=== PATIENT | male | born 1960 | race Caucasian/White ===

== ENCOUNTER 2018-05-05 14:35 | Emergency (ER) | payer OTHER ==
[~2018-05-05] VITALS: Ht 180.3 cm; Wt 81.7 kg
[~2018-05-05 14:35] MED LIST: ASPIRIN325 MG PO; CLOZARIL100 MG PO; EFFEXOR XR150 MG PO
[2018-05-05] MEDS ORDERED: NORCO 5/3251 TABLET PO (16:13)
[2018-05-05] MEDS ORDERED: AUGMENTIN875 MG PO (16:13)
[2018-05-05 16:19] VITALS: BP 121/81
== END 2018-05-05 16:20 | disposition home or self-care (01) ==
LOC: EME 14:35
DX: K04.7 Periapical abscess without sinus (principal); F41.9 Anxiety disorder, unspecified; F32.9 Major depressive disorder, single episode, unspecified; F17.200 Nicotine dependence, unspecified, uncomplicated; Z79.82 Long term (current) use of aspirin
CPT/HCPCS: 99281; 99284

== ENCOUNTER 2018-05-23 10:36 | Emergency (ER) | payer OTHER ==
[~2018-05-23] VITALS: Ht 180.3 cm; Wt 84.2 kg
[~2018-05-23 10:36] MED LIST changes: +AUGMENTIN875 MG PO; +NORCO 5/3251 TABLET PO
[2018-05-23 13:35] VITALS: BP 124/79
== END 2018-05-23 13:36 | disposition home or self-care (01) ==
LOC: EME 10:36
DX: H10.89 Other conjunctivitis (principal); Z79.82 Long term (current) use of aspirin; F17.200 Nicotine dependence, unspecified, uncomplicated
CPT/HCPCS: 99281; 99284